=== PATIENT | male | born 1980 | race American Indian/Alaskan Native ===

== ENCOUNTER 2019-01-02 09:31 | Emergency (ER) | payer OTHER ==
[2019-01-02 09:38] VITALS: BP 144/95
--- NOTE | 2019-01-02 10:56 | Emergency Department Report ---
ED ENT HPI - General Chief complaint: Sore Throat Stated complaint: SORETHROAT,COLD SORES Time Seen by Provider: 01/02/19 10:54 Source: patient Mode of arrival: Ambulatory Limitations: No Limitations - History of Present Illness Initial comments: 38-year-old -[place] male presents to the emergency room complaining of swelling to his gums with a white film on them since Friday. Patient states that he was seen by [facility] urgent care on and was given a prescription for penicillin and he's been taking twice a day for 10 days. Patient reports this lasts HIV test was July which was negative. Patient does admit to smoking a lot of Huka in the last week. Patient denies any fever chills no shortness of breathing MD complaint: other (mouth sores) -: days(s) (4) Severity: moderate Severity scale (0 -10): 7 Quality: burning, stabbing, sharp Consistency: constant Improves with: none Worsens with: none - Related Data Previous Rx's Medication Instructions Recorded Last Taken Type DOXYCYCLINE Hyclate [Vibramycin 100 mg PO Q12HR #20 capsule 04/27/15 Unknown Rx CAP] Chlorhexidine Mouthwash [Peridex] 15 ml MM BID #1 bottle 01/02/19 Unknown Rx Nystatin [Nystatin SUSP] 10 ml PO TID 10 Days #100 ml 01/02/19 Unknown Rx Allergies Allergy/AdvReac Type Severity Reaction Status Date / Time No Known Allergies Allergy Verified 01/02/19 09:34 ED Dental HPI - General Chief complaint: Sore Throat Stated complaint: SORETHROAT,COLD SORES Time Seen by Provider: 01/02/19 10:54 Source: patient Mode of arrival: Ambulatory Limitations: No Limitations - Related Data Previous Rx's Medication Instructions Recorded Last Taken Type DOXYCYCLINE Hyclate [Vibramycin 100 mg PO Q12HR #20 capsule 04/27/15 Unknown Rx CAP] Chlorhexidine Mouthwash [Peridex] 15 ml MM BID #1 bottle 01/02/19 Unknown Rx Nystatin [Nystatin SUSP] 10 ml PO TID 10 Days #100 ml 01/02/19 Unknown Rx Allergies Allergy/AdvReac Type Severity Reaction Status Date / Time No Known Allergies Allergy Verified 01/02/19 09:34 ED Review of Systems ROS: Stated complaint: SORETHROAT,COLD SORES Other details as noted in HPI Comment: All other systems reviewed and negative ENT: other (mouth pain and gingiva red and swollen) ED Past Medical Hx - Past Medical History Previous Medical History?: No - Surgical History Past Surgical History?: No - Social History Smoking Status: Current Some Day Smoker Substance Use Type: Alcohol - Medications Home Medications: Home Medications Medication Instructions Recorded Confirmed Last Taken Type DOXYCYCLINE Hyclate [Vibramycin 100 mg PO Q12HR #20 capsule 04/27/15 Unknown Rx CAP] Chlorhexidine Mouthwash [Peridex] 15 ml MM BID #1 bottle 01/02/19 Unknown Rx Nystatin [Nystatin SUSP] 10 ml PO TID 10 Days #100 ml 01/02/19 Unknown Rx ED Physical Exam - General Limitations: No Limitations General appearance: alert, in no apparent distress - Head Head exam: Present: atraumatic, normocephalic - Eye Eye exam: Present: PERRL - Expanded ENT Exam Expanded Teeth exam: Present: gingival enlargement, other (white film on gums that are very erythematous and edematous tongue is coated white.) - Respiratory Respiratory exam: Present: normal lung sounds bilaterally. Absent: respiratory distress - Cardiovascular Cardiovascular Exam: Present: regular rate, normal rhythm. Absent: systolic murmur, diastolic murmur, rubs, gallop - Extremities Exam Extremities exam: Present: full ROM - Neurological Exam Neurological exam: Present: alert, oriented X3, normal gait - Psychiatric Psychiatric exam: Present: normal affect, normal mood - Skin Skin exam: Present: warm, dry, intact, normal color. Absent: rash ED Course Vital Signs 01/02/19 09:34 Temperature 98.2 F Pulse Rate 86 Respiratory 20 Rate Blood Pressure 144/95 O2 Sat by Pulse 98 Oximetry ED Medical Decision Making - Medical Decision Making Patient has been evaluated by this provider fast track. Discussed the patient appears to have oral candidiasis. Discussed the patient to use nystatin oral solution and chlorhexidine for gingiva enlargement and swelling. Critical care attestation.: If time is entered above; I have spent that time in minutes in the direct care of this critically ill patient, excluding procedure time. ED Disposition Clinical Impression: Oral candidiasis, Gingivitis, acute Disposition: DC-01 TO HOME OR SELFCARE Is pt being admited?: No Does the pt Need Aspirin: No Condition: Stable Instructions: Oral Candidiasis (ED) Additional Instructions: Use medications as prescribed. Tylenol or ibuprofen for pain management. Follow up with her primary care provider I have listed one below for your convenience. Prescriptions: Nystatin [Nystatin SUSP] 10 ml PO TID 10 Days #100 ml Chlorhexidine Mouthwash [Peridex] 15 ml MM BID #1 bottle Referrals: [facility] [Outside] - 3-5 Days [facility] [Outside] - 3-5 Days [facility] [Outside] - 3-5 Days
[2019-01-02] MEDS ORDERED: LIDOCAINE VISCOUS 2% PO ONE (11:06)
== END 2019-01-02 11:48 | disposition home or self-care (01) ==
LOC: ED 09:31
DX: B37.0 Candidal stomatitis (principal); K05.00 Acute gingivitis, plaque induced; F17.200 Nicotine dependence, unspecified, uncomplicated; Z79.899 Other long term (current) drug therapy
CPT/HCPCS: 99282

== ENCOUNTER 2020-11-23 10:33 | Emergency (ER) | payer SELFPAY ==
[2020-11-23 10:47] VITALS: BP 137/86
[2020-11-23] MEDS ORDERED: IBUPROFEN 800 MG TAB PO ONE (11:21)
[2020-11-23] MEDS ORDERED: ACETAMINOPHEN 325 MG TAB PO ONE (11:21)
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
== END 2020-11-23 13:02 | disposition home or self-care (01) ==
LOC: ED 10:33
DX: S16.1XXA Strain of muscle, fascia and tendon at neck level, initial encounter (principal); M54.41 Lumbago with sciatica, right side; Z79.899 Other long term (current) drug therapy; V49.09XA Driver injured in collision with other motor vehicles in nontraffic accident, initial encounter; Y93.89 Activity, other specified; Y92.488 Other paved roadways as the place of occurrence of the external cause; Y99.8 Other external cause status
CPT/HCPCS: 72040; 72100; 99283